=== PATIENT | female | born 1970 | race Two or more races ===

== ENCOUNTER 2019-05-09 11:50 | Emergency (ER) | payer OTHER ==
[~2019-05-09] VITALS: Ht 162.6 cm; Wt 68.0 kg
[2019-05-09] MEDS ORDERED: KETOROLAC 60MG/2ML VIAL IM ONE (13:15)
[2019-05-09] MEDS ORDERED: HYDROCODONE/ACETAMINOPHEN 5/325MG TABLET PO ONE (13:15)
[2019-05-09] MEDS ORDERED: ONDANSETRON 4MG ODT PO ONE (13:15)
[2019-05-09 14:48] VITALS: BP 135/87
== END 2019-05-09 14:49 | disposition home or self-care (01) ==
LOC: ER 11:50
DX: S80.12XA Contusion of left lower leg, initial encounter (principal); M25.552 Pain in left hip; R07.89 Other chest pain; V49.88XA Car occupant (driver) (passenger) injured in other specified transport accidents, initial encounter; Y93.89 Activity, other specified; Y92.89 Other specified places as the place of occurrence of the external cause; Y99.8 Other external cause status
CPT/HCPCS: 71045; 73502; 76705; 81025; 96372; 99284; J1885; Q0162